=== PATIENT | female | born 1940 | race Caucasian/White ===

== ENCOUNTER → 2017-02-11 | Outpatient (CLI) | payer MEDICARE ==
[~2017-02-11] MED LIST: ATEN25TA PO; CALCIUM PO; FURO20TA3 PO; LANS30CA PO; LEVO75TA5 PO; POTA20TA89 PO; PSEU1CAP PO; RIVA20TA PO; SIMV20TA3 PO
== END | disposition home or self-care (01) ==
LOC: CFH 12:38
PROVIDERS: ATTEND Internal Medicine Cardiovascular Disease
DX: I07.1 Rheumatic tricuspid insufficiency (principal); I27.20 Pulmonary hypertension, unspecified; E78.5 Hyperlipidemia, unspecified; Z85.048 Personal history of other malignant neoplasm of rectum, rectosigmoid junction, and anus; Z99.81 Dependence on supplemental oxygen
CPT/HCPCS: 93306

== ENCOUNTER 2017-08-20 09:04 | Emergency (ER) | payer MEDICARE ==
[~2017-08-20] VITALS: Ht 162.6 cm; Wt 55.6 kg
[2017-08-20] MEDS ORDERED: MOME17SP NAS (09:38)
[2017-08-20] MEDS ORDERED: [UNRECOGNIZED DRUG - OTHER] PO (09:38)
[2017-08-20] MEDS ORDERED: RIOC2.5T PO (09:38)
[2017-08-20 09:55] LABS: BASOPHILS # (AUTO) 0.03 x10^3/uL (0-0.1); BASOPHILS % (AUTO) 1 % (0-1); EOSINOPHILS # (AUTO) 0.15 x10^3/uL (0-0.4); EOSINOPHILS % (AUTO) 3 % (1-7); LYMPHOCYTES % (AUTO) 18 % (22-44); MD NO; MEAN CORPUSCULAR HEMOGLOBIN 32.4 pg (27.0-34.8); MEAN CORPUSCULAR HGB CONC 34.1 g/dL (32.4-35.8); MEAN CORPUSCULAR VOLUME 95.1 fL (80-100); MEAN PLATELET VOLUME 9.8 fL (7.4-10.4); MONOCYTES # (AUTO) 0.45 x10^3/uL (0.2-0.8); MONOCYTES % (AUTO) 7 % (2-9); NEUTROPHILS # (AUTO) 4.35 x10^3/uL (1.8-6.8); NEUTROPHILS % (AUTO) 72 % (42-75); PLATELET COUNT 210 x10^3/uL (130-400); RED BLOOD COUNT 4.17 x10^6/uL (3.82-5.3); RED CELL DISTRIBUTION WIDTH 14.4 % (9.6-15.2)
[2017-08-20] MEDS ORDERED: SODIUM CHLORIDE 0.9% 1,000ML IVBOLUS ONE (10:00)
[2017-08-20 10:02] LABS: INTERNATIONAL NORMALIZED RATIO 1.21 (0.93-1.1); PROTHROMBIN TIME 12.5 Seconds (9.6-11.5)
[2017-08-20 10:06] LABS: ALANINE AMINOTRANSFERASE 28 U/L (12-78); ALBUMIN 4.3 g/dL (3.4-5.0); ANION GAP 8 mmol/L (5-15); CALCIUM 9.2 mg/dL (8.5-10.1); CHLORIDE 109 mmol/L (98-107); CREATININE 1.15 mg/dL (0.55-1.02)
[2017-08-20 10:10] LABS: ALKALINE PHOSPHATASE 81 U/L (45-117); BILIRUBIN,TOTAL 0.6 mg/dL (0.2-1.0); TOTAL PROTEIN 8.5 g/dL (6.4-8.2); TROPONIN I < 0.015 ng/mL (0.000-0.045)
[2017-08-20 11:05] LABS: MICROSCOPIC NOT IND
[2017-08-20 11:10] LABS: CULTURE INDICATED? NO
[2017-08-20 11:14] VITALS: BP 107/66
== END 2017-08-20 12:22 | disposition home or self-care (01) ==
LOC: ED 10:47
DX: R00.0 Tachycardia, unspecified (principal); E05.90 Thyrotoxicosis, unspecified without thyrotoxic crisis or storm; I48.91 Unspecified atrial fibrillation; I27.20 Pulmonary hypertension, unspecified; Z86.711 Personal history of pulmonary embolism
CPT/HCPCS: 36415; 71045; 80053; 81003; 83735; 83880; 84436; 84443; 84484; 85025; 85610; 85730; 93005; 96360; 99285; J7030

== ENCOUNTER 2017-12-12 08:39 | Emergency (ER) | payer MEDICARE ==
[~2017-12-12] VITALS: Ht 162.6 cm; Wt 58.5 kg
[~2017-12-12 08:39] MED LIST changes: +MOME17SP NAS; +RIOC2.5T PO; +[UNRECOGNIZED DRUG - OTHER] PO
[2017-12-12 08:42] VITALS: BP 118/79
== END 2017-12-12 11:08 | disposition home or self-care (01) ==
LOC: ED 09:47
DX: S90.02XA Contusion of left ankle, initial encounter (principal); S80.12XA Contusion of left lower leg, initial encounter; X58.XXXA Exposure to other specified factors, initial encounter; Y93.89 Activity, other specified; Y99.8 Other external cause status; Y92.009 Unspecified place in unspecified non-institutional (private) residence as the place of occurrence of the external cause
CPT/HCPCS: 99284

== ENCOUNTER → 2018-06-02 | Outpatient (CLI) | payer MEDICARE | END | disposition home or self-care (01) | LOC: CFH 13:37 | PROVIDERS: ATTEND Internal Medicine Cardiovascular Disease | DX: I08.2 Rheumatic disorders of both aortic and tricuspid valves (principal); I48.0 Paroxysmal atrial fibrillation; E78.5 Hyperlipidemia, unspecified; I27.20 Pulmonary hypertension, unspecified; Z99.81 Dependence on supplemental oxygen | CPT/HCPCS: 93306 ==

== ENCOUNTER → 2020-07-25 | Outpatient (CLI) | payer MEDICARE ==
[~2020-07-25] MED LIST changes: +SIMV20TA19 PO; -SIMV20TA3 PO
== END | disposition home or self-care (01) ==
LOC: CFH 12:29
PROVIDERS: ATTEND Internal Medicine Cardiovascular Disease
DX: I36.1 Nonrheumatic tricuspid (valve) insufficiency (principal); R06.02 Shortness of breath; I48.0 Paroxysmal atrial fibrillation
CPT/HCPCS: 93306

== ENCOUNTER 2020-08-29 13:02 | Emergency (ER) | payer MEDICARE ==
[~2020-08-29] VITALS: Ht 162.6 cm; Wt 51.3 kg
[2020-08-29 13:33] LABS: BASOPHILS % (AUTO) 1 % (0-1); EOSINOPHILS % (AUTO) 3 % (1-7); LYMPHOCYTES % (AUTO) 21 % (22-44); MEAN CORPUSCULAR HGB CONC 33.5 g/dL (32.4-35.8); MEAN PLATELET VOLUME 9.6 fL (7.4-10.4); MONOCYTES % (AUTO) 9 % (2-9); NEUTROPHILS % (AUTO) 66 % (42-75); PLATELET COUNT 175 x10^3/uL (130-400); RED BLOOD COUNT 3.82 x10^6/uL (3.82-5.3); RED CELL DISTRIBUTION WIDTH 14.5 % (9.6-15.2)
[2020-08-29 13:37] LABS: MD NO
--- NOTE | 2020-08-29 13:40 | NUR ---
PT PLACED ON ALL ROOM MONITORING. VSS/UPDATED IN COMPUTER. PT WITHOUT CP AT THIS TIME. STATES HX OF CP PREVIOUSLY BUT TODAY'S EPISODE STARTED WHILE AT REST AND PERSISTED FOR TWO HOURS CAUSING HER TO BE CONCERNED. NO ASSOCIATED SYMPTOMS WITH CHEST PRESSURE. CALL LIGHT WITHIN REACH, WARM BLANKET PROVIDED.
[2020-08-29 13:41] LABS: ALANINE AMINOTRANSFERASE 15 U/L (12-78); ALBUMIN 3.9 g/dL (3.4-5.0); ANION GAP 5 mmol/L (5-15); CALCIUM 9.5 mg/dL (8.5-10.1); CHLORIDE 110 mmol/L (98-107); CREATININE 0.91 mg/dL (0.55-1.02); INTERNATIONAL NORMALIZED RATIO 1.21 (0.93-1.1); PROTHROMBIN TIME 12.9 Seconds (9.6-11.5)
[2020-08-29 13:45] LABS: ALKALINE PHOSPHATASE 50 U/L (45-117); BILIRUBIN,TOTAL 0.9 mg/dL (0.2-1.0); TOTAL PROTEIN 7.7 g/dL (6.4-8.2); TROPONIN I < 0.015 ng/mL (0.000-0.045)
--- NOTE | 2020-08-29 14:39 | NUR ---
PT ASSISTED UP TO BR. PER DR GIANG, RECHECK TROPONIN AT 1600. PT AND FAMILY NOTIFIED OF POC. CALL LIGHT WITHIN REACH. VSS.
--- NOTE | 2020-08-29 16:03 | NUR ---
LAB IN TO DRAW REPEAT TROPONIN.
[2020-08-29 16:28] LABS: TROPONIN I < 0.015 ng/mL (0.000-0.045)
--- NOTE | 2020-08-29 16:49 | NUR ---
2ND TROP BACK, PT FOR RECHECK.
--- NOTE | 2020-08-29 16:51 | NUR ---
report from [facility]
[2020-08-29 17:30] VITALS: BP 118/44
== END 2020-08-29 17:37 | disposition home or self-care (01) ==
LOC: ED 17:31
DX: R07.89 Other chest pain (principal); R94.31 Abnormal electrocardiogram [ECG] [EKG]; I10 Essential (primary) hypertension; I48.91 Unspecified atrial fibrillation
CPT/HCPCS: 36415; 71045; 80053; 84484; 85025; 85610; 85730; 93005; 99285

== ENCOUNTER 2020-10-04 06:34 | Day surgery (SDC) | payer MEDICARE ==
[~2020-10-04] VITALS: Ht 162.6 cm; Wt 53.6 kg
[2020-10-04 07:23] VITALS: BP 119/80
[2020-10-04] MEDS ORDERED: DIPHENHYDRAMINE 50 MG/ML, 1ML IVPush ONE (07:30)
[2020-10-04] MEDS ORDERED: DIPHENHYDRAMINE 50 MG/ML, 1ML ONE ×2 (07:42→07:57)
[2020-10-04] MEDS ORDERED: CHOL100012 PO (07:43)
[2020-10-04] MEDS ORDERED: [UNRECOGNIZED DRUG - MIXTURE] PO (07:43)
[2020-10-04 07:54] LABS: BASOPHILS % (AUTO) 1 % (0-1); EOSINOPHILS % (AUTO) 3 % (1-7); LYMPHOCYTES % (AUTO) 24 % (22-44); MEAN CORPUSCULAR HEMOGLOBIN 32.1 pg (27.0-34.8); MEAN CORPUSCULAR HGB CONC 33.2 g/dL (32.4-35.8); MEAN PLATELET VOLUME 9.1 fL (7.4-10.4); MONOCYTES % (AUTO) 10 % (2-9); NEUTROPHILS % (AUTO) 63 % (42-75); PLATELET COUNT 175 x10^3/uL (130-400); RED BLOOD COUNT 3.83 x10^6/uL (3.82-5.3); RED CELL DISTRIBUTION WIDTH 14.5 % (9.6-15.2)
[2020-10-04 07:56] LABS: ANION GAP 7 mmol/L (5-15); CALCIUM 9.7 mg/dL (8.5-10.1); CHLORIDE 108 mmol/L (98-107); CREATININE 0.95 mg/dL (0.55-1.02)
[2020-10-04] MEDS ORDERED: MIDAZOLAM 1 MG/ML, 2ML ONE (07:57)
[2020-10-04] MEDS ORDERED: LIDOCAINE-MPF 1%, 5ML ONE (07:57)
[2020-10-04] MEDS ORDERED: FENTANYL PF 100 MCG/2ML ONE (07:57)
[2020-10-04 08:20] LABS: INTERNATIONAL NORMALIZED RATIO 1.07 (0.93-1.1); PROTHROMBIN TIME 11.4 Seconds (9.6-11.5)
== END 2020-10-04 10:21 | disposition home or self-care (01) ==
LOC: CACL 06:34
PROVIDERS: ATTEND Internal Medicine Cardiovascular Disease
DX: I27.20 Pulmonary hypertension, unspecified (principal); E78.2 Mixed hyperlipidemia; Z79.01 Long term (current) use of anticoagulants; Z79.899 Other long term (current) drug therapy
CPT/HCPCS: 36415; 80048; 85025; 85610; 93451; 99156; C1894; J1200; J2250; J3010